=== PATIENT | male | born 2000 | race Caucasian/White ===

== ENCOUNTER 2023-06-16 17:08 | Emergency (ER) | payer MEDICAID, SELFPAY ==
[2023-06-16 17:20] VITALS: BP 134/73; PULSE 83; RESP 20; TEMP 36.7; O2SAT 100
--- NOTE | 2023-06-16 17:24 | ED.GENADULT ---
HPI - General Adult General Chief complaint: Dental/Oral Stated complaint: dental pain Time Seen by Provider: 06/16/23 17:24 History of Present Illness HPI narrative: Zev Abdi presents with reports of having severe right upper toothache that started about 2 days ago. No fever/chills. Related Data Allergies Allergy/AdvReac Type Severity Reaction Status Date / Time No Known Allergies Allergy Verified 06/16/23 17:09 Review of Systems Review of Systems: All systems reviewed & are unremarkable except as noted in HPI and below Exam Const: General: healthy appearing, no acute distress and alert Nutritional Appearance: well nourished Orientation/consciousness: patient oriented x3 Limitations: no limitations HENMT: Head: normal to inspection Ears: external ears normal Face/Nose/Sinus: Normal external nose present Teeth and gingiva: abnormal tooth and associated gingiva Eyes: Conjunctivae: conjunctivae normal Pupils: Equal, round and reactive pupils present EOM: EOMs intact bilaterally Neck: Neck: normal visual inspection Chest: Chest palpation & inspection: normal inspection of the chest Resp: Effort & Inspection: normal respiratory effort Skin: General skin exam: normal color Rashes: no rashes Wounds: no wounds Neuro: General: patient oriented x3 Cranial nerves: Yes Nystagmus not present Speech: normal speech Course Vital Signs Vital signs: Vital Signs Temperature 36.7 C 06/16/23 17:20 Pulse Rate 83 06/16/23 17:20 Respiratory Rate 20 06/16/23 17:20 Blood Pressure 134/73 06/16/23 17:20 Pulse Oximetry 100 06/16/23 17:20 Temperature 36.7 C 06/16/23 17:20 Pulse Rate 83 06/16/23 17:20 Respiratory Rate 20 06/16/23 17:20 Blood Pressure 134/73 06/16/23 17:20 Pulse Oximetry 100 06/16/23 17:20 Medical Decision Making [facility] Narrative Medical decision making narrative: severe dental decay noted on exam / no palpable fluctuance or abscess palpated on exam Plan to start antibiotic treatment here and pain control D/C home with PO antibiotics / Naproxen BID Follow up with PCP Dental referrals Strict return precautions provided. Medical Records Medical records reviewed: Yes I reviewed the external patient's medical records. Vital Signs Vital Signs: Vital Signs Temperature 36.7 C 06/16/23 17:20 Pulse Rate 83 03/04/24 17:20 Respiratory Rate 20 06/16/23 17:20 Blood Pressure 134/73 06/16/23 17:20 Pulse Oximetry 100 06/16/23 17:20 Temperature 36.7 C 06/16/23 17:20 Pulse Rate 83 06/16/23 17:20 Respiratory Rate 20 06/16/23 17:20 Blood Pressure 134/73 06/16/23 17:20 Pulse Oximetry 100 06/16/23 17:20 Vitals reviewed by me. Discharge Plan Discharge Clinical Impression: Toothache, Dental caries Patient Disposition: Home, Self-Care Condition: Stable Instructions: Antibiotic Form Additional Instructions: Continue the antibiotics as ordered four times a day for 2 weeks Continue the Naproxen twice daily for pain Follow up with a dentist as discussed As always, if anything changes or gets worse you can return to the ER. Prescriptions: New penicillin V potassium 500 mg tablet 500 mg PO QID Qty: 56 0RF naproxen 500 mg tablet 500 mg PO BID PRN (Reason: pain) Qty: 28 0RF Follow-up/Referrals: PHYSICIAN,[employer] [Primary Care Provider] - Stand Alone Forms: Work/School Release IP Time of Disposition: 17:30
[2023-06-16] MEDS: HYDROcodone/acetaminophen (*CRX) 5-325 MG TABLET 1 TAB PO (17:45)
[2023-06-16] MEDS: PENICILLIN V POTASSIUM 250 MG TABLET 500 MG PO (17:45)
[2023-06-16] MEDS: LIDOCAINE HCL 2% VISC SOLN 15 ML UDC 5 ML PO (17:46)
[2023-06-16] MEDS: KETOROLAC 30 MG/ML VIAL (*BKC) IM (17:46)
== END 2023-06-16 18:06 | disposition home or self-care (01) ==
LOC: ANHED 17:55
PROVIDERS: Emergency Provider Nurse Practitioner Family
DX: K02.9 Dental caries, unspecified (principal)
CPT/HCPCS: 96372; 99283; A9270; J1885